=== PATIENT | male | born 1985 | race Caucasian/White ===

== ENCOUNTER 2018-07-19 19:23 | Emergency (ER) | payer SELFPAY ==
[~2018-07-19] VITALS: Ht 182.9 cm; Wt 73.6 kg
[2018-07-19 20:52] VITALS: BP 112/75
== END 2018-07-19 20:52 | disposition home or self-care (01) ==
LOC: ED 19:23
DX: T63.481A Toxic effect of venom of other arthropod, accidental (unintentional), initial encounter (principal); L50.0 Allergic urticaria; F17.200 Nicotine dependence, unspecified, uncomplicated
CPT/HCPCS: J2930